=== PATIENT | male | born 1950 | race Hispanic/Latino ===

== ENCOUNTER 2020-06-28 06:58 | Observation (INO) | payer MEDICARE, OTHER ==
[2020-06-26 11:15] LABS: Hematocrit 43.9 % (35.5-45.6); Hemoglobin 14.7 gm/dl (11.8-15.2); Mean Corpuscular HGB Conc 34 % (32-34); Mean Corpuscular Volume 86 fl (84-94); Platelet Count 175 K/mm3 (140-440); Red Blood Count 5.12 M/mm3 (3.65-5.03); Red Cell Distribution Width 14.1 % (13.2-15.2)
[2020-06-26 11:32] LABS: Alanine Aminotransferase 23 units/L (7-56); Albumin 4.1 g/dL (3.9-5); BUN/Creatinine Ratio 19; Blood Urea Nitrogen 23 mg/dL (9-20); Calcium 9.3 mg/dL (8.4-10.2); Hemolysis Index 2
[~2020-06-28 06:58] MED LIST: ceFAZolin/STERILE WATER 2 GM/20 ML SYRINGE IV NR
[2020-06-28] MEDS ORDERED: LACTATED RINGERS 1,000 ML ONE (08:59)
[2020-06-28] MEDS ORDERED: HYDROmorphone 1 MG/1 ML INJ IV PRN ×2 (09:39)
[2020-06-28] MEDS ORDERED: LACTATED RINGERS 1,000 ML IV SCH (09:39)
[2020-06-28] MEDS ORDERED: ONDANSETRON 4 MG/2 ML INJ IV PRN ×2 (09:39→11:56)
--- NOTE | 2020-06-28 09:40 | Anesthesia Day of Surgery ---
Anesthesia Day of Surgery - Day of Surgery Patient Examined: Yes Patient H&P Reviewed: Yes Patient is NPO: Yes
--- NOTE | 2020-06-28 09:43 | Anesthesia Consultation ---
Anesthesia Consult and Med Hx Date of service: 06/28/20 - Airway Anesthetic Teeth Evaluation: Chipped, Crowns ROM Head & Neck: Adequate Mental/Hyoid Distance: Adequate Mallampati Class: Class II Intubation Access Assessment: Good - Pre-Operative Health Status ASA Pre-Surgery Classification: ASA3 Proposed Anesthetic Plan: General - Pulmonary Hx Smoking: Yes (STOPPED 1972) Hx Asthma: No Hx Respiratory Symptoms: No (+2FS) COPD: No Hx Pneumonia: No (Had COVID and states he's fully recovered. COVID negative test on chart) Hx Sleep Apnea: No (ADRIAN PRE SCREEN LOW RISK) - Cardiovascular System Hx Hypertension: No Hx Coronary Artery Disease: Yes Hx Heart Attack/AMI: No (Stent 2001. ECHO 12/2019) Hx Angina: No Hx Heart Murmur: No - Central Nervous System Hx Neuromuscular Disorder: Yes (RA-denies neck issues and use of steroids) Hx Seizures: No Hx Back Pain: Yes (LOWER) Hx Psychiatric Problems: Yes (Anxiety/Depression) - Gastrointestinal Hx Gastroesophageal Reflux Disease: No - Endocrine Hx Renal Disease: Yes (Renal cancer-neprectomy) Hx End Stage Renal Disease: No Hx Cirrhosis: No Hx Liver Disease: No (HEPATITIS AGE 14) - Hematic Hx Anemia: Yes (AT AGE 15 YRS) Hx Sickle Cell Disease: No - Other Systems Hx Alcohol Use: No Hx Substance Use: No Hx Cancer: Yes Hx Obesity: No
[2020-06-28] MEDS ORDERED: SODIUM CHLORIDE 0.9% 1000 ML 1,000 ML ONE (10:04)
[2020-06-28] MEDS ORDERED: propofoL 200 MG/20 ML VIAL IV ONE (10:19)
[2020-06-28] MEDS ORDERED: LIDOCAINE MPF (2%) 20 MG/1 ML VIAL 5 ML ONE (10:19)
[2020-06-28] MEDS ORDERED: ONDANSETRON 4 MG/2 ML INJ ONE (10:19)
[2020-06-28] MEDS ORDERED: fentaNYL 100 MCG/2 ML INJ ONE (10:19)
[2020-06-28] MEDS ORDERED: dexAMETHasone 20 MG/5 ML VIAL ONE (10:19)
[2020-06-28] MEDS ORDERED: IOHEXOL 300 MG/ML 50ML IV ONE (11:12)
[2020-06-28] MEDS ORDERED: MANNITOL/SORBITOL SOLUTION 3,000 ML IRRIG.SOLN IR ONE (11:44)
[2020-06-28] MEDS ORDERED: SODIUM CHLORIDE 0.9% IRRIG SOLN 2000 ML IR ONE (11:45)
[2020-06-28] MEDS ORDERED: WATER FOR IRRIG STERILE 1,500 ML BOTTLE IR ONE (11:46)
[2020-06-28] MEDS ORDERED: PHENYLEPHRINE/NS 1,000 MCG/10 ML SYRINGE (OR USE) IV ONE (11:46)
[2020-06-28] MEDS ORDERED: MORPHINE 2 MG/1 ML INJ IV PRN (11:56)
[2020-06-28] MEDS ORDERED: NALOXONE 0.4 MG/1 ML INJ IV PRN (11:56)
[2020-06-28] MEDS ORDERED: ZOLPIDEM 5 MG TAB PO PRN ×2 (11:56→12:03)
--- NOTE | 2020-06-28 11:56 | Short Stay Summary ---
Short Stay Documentation Date of service: 06/28/20 - History H&P: obtained from office - Allergies and Medications Current Medications: Allergies shellfish derived Allergy (Verified 05/19/19 15:13) Anaphylaxis Home Medications Medication Instructions Recorded Confirmed Last Taken Type Alfuzosin HCl [Alfuzosin HCl ER] 10 mg PO DAILY 05/19/19 06/28/20 06/27/20 17:00 History Finasteride [Proscar] 5 mg PO DAILY 05/19/19 06/28/20 06/27/20 17:00 History Glimepiride [Amaryl] 2 mg PO DAILY 05/19/19 06/28/20 06/27/20 17:00 History Aspirin 81 mg PO DAILY 04/12/20 06/28/20 06/19/20 08:00 History Calcium/Magnesium/Zinc 1 tab PO DAILY 04/12/20 06/28/20 06/19/20 08:00 History [place]-3 1 cap PO DAILY 04/12/20 06/28/20 06/19/20 08:00 History Red Yeast Rice 1 tab PO DAILY 04/12/20 06/28/20 06/19/20 08:00 History Saw [place] 1 tab PO DAILY 04/12/20 06/28/20 06/19/20 08:00 History Vitamin C 1,000 mg PO DAILY 04/12/20 06/28/20 06/19/20 08:00 History Vitamin D3 1 tab PO DAILY 04/12/20 06/28/20 06/19/20 08:00 History Multivit-Min/FA/Lycopen/Lutein 1 each PO DAILY 06/23/20 06/28/20 06/19/20 08:00 History [Centrum Silver Tablet] Zolpidem [Ambien] 5 mg PO QHS PRN 06/23/20 06/28/20 06/27/20 22:00 History Active Medications Cefazolin Sodium (Cefazolin/Sterile Water 2 Gm/20 Ml Syringe) 2 gm IV PREOP NR Stop: 06/28/20 23:00 Hydromorphone HCl (Hydromorphone 1 Mg/1 Ml Inj) 0.25 mg IV Q10MIN PRN PRN Reason: Pain, Moderate (4-6) Stop: 06/28/20 23:00 Hydromorphone HCl (Hydromorphone 1 Mg/1 Ml Inj) 0.5 mg IV Q10MIN PRN PRN Reason: Pain , Severe (7-10) Stop: 06/28/20 23:00 Lactated Ringer's (Lactated Ringers) 1,000 mls @ 125 mls/hr IV DIRECT KARLA Last Admin: 06/28/20 09:15 Dose: 125 mls/hr Documented by: Ondansetron HCl (Ondansetron 4 Mg/2 Ml Inj) 4 mg IV ONCE PRN PRN Reason: Nausea And Vomiting Stop: 06/28/20 23:00 - Brief post op/procedure progress note Date of procedure: 06/28/20 Pre-op diagnosis: bph Post-op diagnosis: same Procedure: cysto, TUR bladder neck, greenlight laser Anesthesia: GETA Surgeon: NANCY DEMARCO Estimated blood loss: minimal Pathology: list (prostate chips) Specimen disposition: to lab Condition: stable - Hospital course Hospital course: nickiriwaqas arguellesmarquez on chart home with palmer - Disposition Condition at discharge: Stable Disposition: DC-01 TO HOME OR SELFCARE Short Stay Discharge Plan Follow up with: NANCY DEMARCO MD [Staff Physician] - 7 Days RENEE NOGUERA MD [Primary Care Provider] - 7 Days
[2020-06-28] MEDS ORDERED: HYDROcodone/ACETAMINOPHEN 5-325 MG TAB PO PRN (12:30)
[2020-06-28] MEDS ORDERED: DEXTROSE 50% IN WATER (25GM) 50 ML SYRINGE IV PRN (12:30)
--- NOTE | 2020-06-28 13:05 | Fluoroscopy Report ---
INTRAOPERATIVE FLUOROSCOPY: INDICATION / CLINICAL INFORMATION: ELEVATED PSA. TECHNIQUE: Intraoperative spot images were obtained during the procedure. FINDINGS: Intraoperative spot images show injection of contrast in the right ureter in renal collecting system. No filling defects are seen. Right collecting system and ureter empty normally postdrainage imaging. Fluoroscopy Time: 6 seconds. Fluoroscopy Images: 6. Signer Name: Adithya Blackwell MD Signed: 06/28/2020 1:00 PM Workstation Name: [id number]
--- NOTE | 2020-06-28 14:00 | Post Anesthesia Evaluation ---
- Post Anesthesia Evaluation Patient Participated: Yes Airway Patent: Yes Stable Respiratory Function: Yes Nausea/Vomiting: No Temp > 96.8F: Yes Pain Manageable: Yes Adequeate Hydration: Yes Anesthesia Complications: No Block Receding Appropriately: Not Applicable Patient on Ventilator: No
[2020-06-28] MEDS: SODIUM CHLORIDE 0.9% 1000 ML 1,000 ML IV SCH (15:00)
[2020-06-28] MEDS: SODIUM CHLORIDE 0.9% IRR 500 ML BOTTLE IR PRN ×2 (15:30→19:07)
[2020-06-28] MEDS: ceFAZolin/NS 1 GM/50 ML 1 GM/50 ML BAG IV SCH (17:11)
[2020-06-28] MEDS: SODIUM CHLORIDE 0.9% IRR 500 ML BOTTLE IR SCH ×2 (17:12→21:10)
--- NOTE | 2020-06-28 20:50 | Consultation ---
History of Present Illness - Reason for Consult Consult date: 06/28/20 Medical management Requesting physician: NANCY DEMARCO - History of Present Illness Patient had TURP today and admitted for postoperative observation Patient has apparently tested positive for coronavirus which is he has been retesting positive for the last 7 months patient had coronavirus in October from which is reported completely Past History Past Medical History: diabetes Past Surgical History: TURP Social history: lives with family, full code Family history: hypertension Medications and Allergies Allergies Allergy/AdvReac Type Severity Reaction Status Date / Time shellfish derived Allergy Anaphylaxis Verified 05/19/19 15:13 Home Medications Medication Instructions Recorded Confirmed Last Taken Type Alfuzosin HCl [Alfuzosin HCl ER] 10 mg PO DAILY 05/19/19 06/28/20 06/27/20 17:00 History Finasteride [Proscar] 5 mg PO DAILY 05/19/19 06/28/20 06/27/20 17:00 History Glimepiride [Amaryl] 2 mg PO DAILY 05/19/19 06/28/20 06/27/20 17:00 History Aspirin 81 mg PO DAILY 04/12/20 06/28/20 06/19/20 08:00 History Calcium/Magnesium/Zinc 1 tab PO DAILY 04/12/20 06/28/20 06/19/20 08:00 History [place]-3 1 cap PO DAILY 04/12/20 06/28/20 06/19/20 08:00 History Red Yeast Rice 1 tab PO DAILY 04/12/20 06/28/20 06/19/20 08:00 History Saw [place] 1 tab PO DAILY 04/12/20 06/28/20 06/19/20 08:00 History Vitamin C 1,000 mg PO DAILY 04/12/20 06/28/20 06/19/20 08:00 History Vitamin D3 1 tab PO DAILY 04/12/20 06/28/20 06/19/20 08:00 History Multivit-Min/FA/Lycopen/Lutein 1 each PO DAILY 06/23/20 06/28/20 06/19/20 08:00 History [Centrum Silver Tablet] Zolpidem [Ambien] 5 mg PO QHS PRN 06/23/20 06/28/20 06/27/20 22:00 History Active Meds: Active Medications Hydrocodone Bitart/Acetaminophen (Hydrocodone/Acetaminophen 5-325 Mg Tab) 2 eac h PO Q4H PRN PRN Reason: Pain, Moderate (4-6) Last Admin: 06/28/20 15:00 Dose: 2 each Documented by: Cefazolin Sodium (Cefazolin/Sterile Water 2 Gm/20 Ml Syringe) 2 gm IV PREOP NR Stop: 06/28/20 23:00 Dextrose (Dextrose 50% In Water (25gm) 50 Ml Syringe) 50 ml IV Q30MIN PRN; Protocol PRN Reason: Hypoglycemia Finasteride (Finasteride 5 Mg Tab) 5 mg PO DAILY KARLA Glimepiride (Glimepiride 2 Mg Tab) 2 mg PO QAMDIAB KARLA Hydromorphone HCl (Hydromorphone 1 Mg/1 Ml Inj) 0.25 mg IV Q10MIN PRN PRN Reason: Pain, Moderate (4-6) Stop: 06/28/20 23:00 Hydromorphone HCl (Hydromorphone 1 Mg/1 Ml Inj) 0.5 mg IV Q10MIN PRN PRN Reason: Pain , Severe (7-10) Stop: 06/28/20 23:00 Lactated Ringer's (Lactated Ringers) 1,000 mls @ 125 mls/hr IV DIRECT KARLA Last Admin: 06/28/20 09:15 Dose: 125 mls/hr Documented by: Sodium Chloride (Nacl 0.9% 1000 Ml) 1,000 mls @ 100 mls/hr IV DIRECT KARLA Last Admin: 06/28/20 15:00 Dose: 100 mls/hr Documented by: Cefazolin Sodium (Ancef/Ns 1 Gm/50 Ml) 1 gm in 50 mls @ 100 mls/hr IV Q8H KARLA; Protocol Stop: 06/29/20 01:29 Last Admin: 06/28/20 17:11 Dose: 100 mls/hr Documented by: Miscellaneous Medication (Calcium/Magnesium/Zinc) 1 tab PO DAILY KARLA Morphine Sulfate (Morphine 2 Mg/1 Ml Inj) 2 mg IV Q4H PRN PRN Reason: Pain, Moderate (4-6) Naloxone HCl (Naloxone 0.4 Mg/1 Ml Inj) 0.1 mg IV Q2MIN PRN PRN Reason: Res Rate </= 8 or 02 SAT < 92% Ondansetron HCl (Ondansetron 4 Mg/2 Ml Inj) 4 mg IV ONCE PRN PRN Reason: Nausea And Vomiting Stop: 06/28/20 23:00 Ondansetron HCl (Ondansetron 4 Mg/2 Ml Inj) 4 mg IV Q8H PRN PRN Reason: Nausea And Vomiting Sodium Chloride (Sodium Chloride 0.9% Irr 500 Ml Bottle) 500 ml IR Q4HR KARLA Last Admin: 06/28/20 17:12 Dose: 500 ml Documented by: Sodium Chloride (Sodium Chloride 0.9% Irr 500 Ml Bottle) 500 ml IR PRN PRN PRN Reason: IRRIGATE PER MD ORDERS Last Admin: 06/28/20 19:07 Dose: 500 ml Documented by: Zolpidem Tartrate (Zolpidem 5 Mg Tab) 5 mg PO QHS PRN PRN Reason: Sleep Review of Systems All systems: negative Exam - Constitutional Vitals: Temp Pulse Resp BP Pulse Ox 97.9 F 69 16 144/70 98 06/28/20 14:00 06/28/20 14:00 06/28/20 14:00 06/28/20 14:00 06/28/20 14:00 General appearance: Present: no acute distress, well-nourished - EENT Eyes: Present: PERRL ENT: hearing intact, clear oral mucosa - Neck Neck: Present: supple, normal ROM - Respiratory Respiratory effort: normal Respiratory: bilateral: CTA - Cardiovascular Heart rate: 78 Rhythm: regular Heart Sounds: Present: S1 & S2. Absent: rub, click - Extremities Extremities: pulses symmetrical, No edema Peripheral Pulses: within normal limits - Abdominal General gastrointestinal: Present: soft, non-tender, non-distended, normal bowel sounds Male genitourinary: Present: normal - Integumentary Integumentary: Present: clear, warm, dry - Musculoskeletal Musculoskeletal: gait normal, strength equal bilaterally - Psychiatric Psychiatric: appropriate mood/affect, intact judgment & insight - Neurologic Neurologic: CNII-XII intact, moves all extremities Results - Labs CBC & Chem 7: 06/26/20 10:15 06/26/20 10:15 Labs: Abnormal lab results 06/28/20 06/28/20 Range/Units 08:47 12:17 POC Glucose 140 H 139 H (70-105) mg/dL Assessment and Plan - Patient Problems (1) S/P TURP Current Visit: Yes Status: Acute Plan to address problem: Postop doing well (2) 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 Plan to address problem: Patient may be having residual viral particles in his posterior nasal pathway because of which is testing positive recurrently since October 2019 No active coronavirus symptoms and signs Patient is on isolation which is not necessary but is here only for 1 day (3) T2DM (type 2 diabetes mellitus) Current Visit: Yes Status: Chronic Qualifiers: Diabetes mellitus usp insulin use: unspecified usp insulin use status Plan to address problem: Continue glimepiride and coverage (4) BPH (benign prostatic hyperplasia) Current Visit: Yes Status: Chronic Qualifiers: Lower urinary tract symptom presence: symptoms present Plan to address problem: Patient had TURP today Does not need Azulfidine and Flomax from normal (5) DVT prophylaxis Current Visit: Yes Status: Acute Plan to address problem: On SCDs and GI prophylaxis
[2020-06-28] MEDS: INSULIN LISPRO 100 UNIT/ML SUB-Q SCH (22:05)
[2020-06-29] MEDS: SODIUM CHLORIDE 0.9% 1000 ML 1,000 ML IV SCH (01:17)
[2020-06-29] MEDS: ceFAZolin/NS 1 GM/50 ML 1 GM/50 ML BAG IV SCH (01:17)
[2020-06-29] MEDS: SODIUM CHLORIDE 0.9% IRR 500 ML BOTTLE IR SCH ×3 (01:18→09:14)
[2020-06-29 05:03] VITALS: BP 132/62
--- NOTE | 2020-06-29 07:04 | Progress Note ---
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 Plan to address problem: Patient may be having residual viral particles in his posterior nasal pathway because of which is testing positive recurrently since October 2019 No active coronavirus symptoms and signs Patient is on isolation which is not necessary but is here only for 1 day (3) T2DM (type 2 diabetes mellitus) Current Visit: Yes Status: Chronic Qualifiers: Diabetes mellitus mcc insulin use: unspecified mcc insulin use status Plan to address problem: Continue glimepiride and coverage (4) BPH (benign prostatic hyperplasia) Current Visit: Yes Status: Chronic Qualifiers: Lower urinary tract symptom presence: symptoms present Plan to address problem: Patient had TURP today Does not need Azulfidine and Flomax from normal (5) DVT prophylaxis Current Visit: Yes Status: Acute Plan to address problem: On SCDs and GI prophylaxis 06/29/2020 -Patient is doing well does not have any complaints -Urology ordered Covid test -Disposition is per urology he is medically clear. History Interval history: Patient was seen and evaluated this morning Patient does not have any shortness of breath or fever Hospitalist Physical - Physical exam Narrative exam: Not in cardiopulmonary distress. The patient appeared well nourished and normally developed. Vital signs as documented. Head exam is unremarkable. No scleral icterus . Neck is without jugular venous distension, thyromegaly, or carotid bruits. Lungs are clear to auscultation. Cardiac exam reveals regular rate and Rhythm. Abdominal exam reveals normal bowel sounds, nontender, no organomegaly. Extremities are nonedematous and both femoral and pedal pulses are normal. 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 No focal weakness. - Constitutional Vitals: Temp Pulse Resp BP Pulse Ox 98.6 F 60 16 132/62 93 06/29/20 04:13 06/29/20 04:13 06/29/20 04:13 06/29/20 04:13 06/29/20 04:13 General appearance: Present: no acute distress, well-nourished Results - Labs CBC & Chem 7: 06/26/20 10:15 06/26/20 10:15 Labs: Laboratory Last Values WBC 5.4 K/mm3 (4.5-11.0) 06/26/20 10:15 RBC 5.12 M/mm3 (3.65-5.03) H 06/26/20 10:15 Hgb 14.7 gm/dl (11.8-15.2) 06/26/20 10:15 Hct 43.9 % (35.5-45.6) 06/26/20 10:15 MCV 86 fl (84-94) 06/26/20 10:15 MCH 29 pg (28-32) 06/26/20 10:15 MCHC 34 % (32-34) 06/26/20 10:15 RDW 14.1 % (13.2-15.2) 06/26/20 10:15 Plt Count 175 K/mm3 (140-440) 06/26/20 10:15 Sodium 138 mmol/L (137-145) 06/26/20 10:15 Potassium 4.2 mmol/L (3.6-5.0) 06/26/20 10:15 Chloride 102.3 mmol/L (98-107) 06/26/20 10:15 Carbon Dioxide 26 mmol/L (22-30) 06/26/20 10:15 Anion Gap 14 mmol/L 06/26/20 10:15 BUN 23 mg/dL (9-20) H 06/26/20 10:15 Creatinine 1.2 mg/dL (0.8-1.3) 06/26/20 10:15 Estimated GFR > 60 ml/min 06/26/20 10:15 BUN/Creatinine Ratio 19 % 06/26/20 10:15 Glucose 168 mg/dL (75-100) H 06/26/20 10:15 POC Glucose 119 mg/dL (70-105) H 06/28/20 21:05 Calcium 9.3 mg/dL (8.4-10.2) 06/26/20 10:15 Total Bilirubin 0.40 mg/dL (0.1-1.2) 06/26/20 10:15 AST 22 units/L (5-40) 06/26/20 10:15 ALT 23 units/L (7-56) 06/26/20 10:15 Alkaline Phosphatase 89 units/L (35-129) 06/26/20 10:15 Total Protein 7.7 g/dL (6.3-8.2) 06/26/20 10:15 Albumin 4.1 g/dL (3.9-5) 06/26/20 10:15 Albumin/Globulin Ratio 1.1 % 06/26/20 10:15 Coronavirus (PCR) Positive (Negative) A 06/26/20 10:10 Blood Type O POSITIVE 06/28/20 08:25 Antibody Screen Negative 06/28/20 08:25 Cho/IV: Voiding Method Indwelling Catheter Active Medications - Current Medications Current Medications: Generic Name Dose Route Start Last Admin Trade Name Freq PRN Reason Stop Dose Admin Hydrocodone Bitart/Acetaminophen 2 each 06/28/20 12:30 06/28/20 15:00 Hydrocodone/Acetaminophen 5-325 Mg Tab PO 2 each Q4H PRN Administration Pain, Moderate (4-6) Dextrose 50 ml 06/28/20 12:30 Dextrose 50% In Water (25gm) 50 Ml Syringe IV Q30MIN PRN Hypoglycemia Protocol Finasteride 5 mg 06/29/20 10:00 Finasteride 5 Mg Tab PO DAILY KARLA Glimepiride 2 mg 06/29/20 08:00 Glimepiride 2 Mg Tab PO QAMDIAB KARLA Lactated Ringer's 1,000 mls @ 125 mls/hr 06/28/20 09:39 06/28/20 09:15 Lactated Ringers IV 125 mls/hr DIRECT KARLA Administration Sodium Chloride 1,000 mls @ 100 mls/hr 06/28/20 12:00 06/29/20 01:17 Nacl 0.9% 1000 Ml IV 100 mls/hr DIRECT KARLA Administration Insulin Human Lispro 0 unit 06/28/20 22:00 06/28/20 22:05 Insulin Lispro 100 Unit/Ml SUB-Q Not Given ACHS [facility] Protocol Miscellaneous Medication 1 tab 06/29/20 10:00 Calcium/Magnesium/Zinc PO DAILY KARLA Morphine Sulfate 2 mg 06/28/20 11:56 Morphine 2 Mg/1 Ml Inj IV Q4H PRN Pain, Moderate (4-6) Naloxone HCl 0.1 mg 06/28/20 11:56 Naloxone 0.4 Mg/1 Ml Inj IV Q2MIN PRN Res Rate </= 8 or 02 SAT < 92% Ondansetron HCl 4 mg 06/28/20 11:56 Ondansetron 4 Mg/2 Ml Inj IV Q8H PRN Nausea And Vomiting Sodium Chloride 500 ml 06/28/20 18:00 06/29/20 05:11 Sodium Chloride 0.9% Irr 500 Ml Bottle IR 500 ml Q4HR KARLA Administration Sodium Chloride 500 ml 06/28/20 15:12 06/28/20 19:07 Sodium Chloride 0.9% Irr 500 Ml Bottle IR 500 ml PRN PRN Administration IRRIGATE PER MD ORDERS Zolpidem Tartrate 5 mg 06/28/20 12:03 Zolpidem 5 Mg Tab PO QHS PRN Sleep
[2020-06-29] MEDS ORDERED: GLIMEPIRIDE 2 MG TAB PO SCH (08:00)
[2020-06-29] MEDS: INSULIN LISPRO 100 UNIT/ML SUB-Q SCH (08:25)
[2020-06-29] MEDS ORDERED: MAGNESIUM PO SCH (10:00)
[2020-06-29] MEDS ORDERED: FINASTERIDE 5 MG TAB PO SCH (10:00)
[2020-06-29] MEDS ORDERED: ZINC PO SCH (10:00)
[2020-06-29] MEDS ORDERED: CALCIUM PO SCH (10:00)
--- NOTE | 2020-06-29 10:54 | Progress Note ---
Assessment and Plan cath irrigated cleat no clots home today Subjective Date of service: 06/29/20 Principal diagnosis: bph Objective - Constitutional Vitals: Vital Signs - 12hr 06/29/20 06/29/20 01:39 04:13 Temperature 98.6 F Pulse Rate 60 Pulse Rate [ 62 Right Brachial] Respiratory 20 16 Rate Blood Pressure 132/62 O2 Sat by Pulse 98 93 Oximetry General appearance: Present: no acute distress - Respiratory Respiratory effort: normal - Gastrointestinal General gastrointestinal: Present: soft, non-tender - Labs CBC & Chem 7: 06/26/20 10:15 06/26/20 10:15 Labs: Abnormal lab results 06/28/20 06/28/20 Range/Units 12:17 21:05 POC Glucose 139 H 119 H (70-105) mg/dL Medications & Allergies - Medications Allergies/Adverse Reactions: Allergies shellfish derived Allergy (Verified 05/19/19 15:13) Anaphylaxis Home Medications: Home Medications Medication Instructions Recorded Confirmed Last Taken Type Alfuzosin HCl [Alfuzosin HCl ER] 10 mg PO DAILY 05/19/19 06/28/20 06/27/20 17:00 History Finasteride [Proscar] 5 mg PO DAILY 05/19/19 06/28/20 06/27/20 17:00 History Glimepiride [Amaryl] 2 mg PO DAILY 05/19/19 06/28/20 06/27/20 17:00 History Aspirin 81 mg PO DAILY 04/12/20 06/28/20 06/19/20 08:00 History Calcium/Magnesium/Zinc 1 tab PO DAILY 04/12/20 06/28/20 06/19/20 08:00 History [place]-3 1 cap PO DAILY 04/12/20 06/28/20 06/19/20 08:00 History Red Yeast [place] 1 tab PO DAILY 04/12/20 06/28/20 06/19/20 08:00 History Saw [place] 1 tab PO DAILY 04/12/20 06/28/20 06/19/20 08:00 History Vitamin C 1,000 mg PO DAILY 04/12/20 06/28/20 06/19/20 08:00 History Vitamin D3 1 tab PO DAILY 04/12/20 06/28/20 06/19/20 08:00 History Multivit-Min/FA/Lycopen/Lutein 1 each PO DAILY 06/23/20 06/28/20 06/19/20 08:00 History [Centrum Silver Tablet] Zolpidem [Ambien] 5 mg PO QHS PRN 06/23/20 06/28/20 06/27/20 22:00 History Active Medications: Generic Name Dose Route Start Last Admin Trade Name Freq PRN Reason Stop Dose Admin Hydrocodone Bitart/Acetaminophen 2 each 06/28/20 12:30 06/28/20 15:00 Hydrocodone/Acetaminophen 5-325 Mg Tab PO 2 each Q4H PRN Administration Pain, Moderate (4-6) Dextrose 50 ml 06/28/20 12:30 Dextrose 50% In Water (25gm) 50 Ml Syringe IV Q30MIN PRN Hypoglycemia Protocol Finasteride 5 mg 06/29/20 10:00 06/29/20 09:14 Finasteride 5 Mg Tab PO 5 mg DAILY KARLA Administration Glimepiride 2 mg 06/29/20 08:00 06/29/20 09:14 Glimepiride 2 Mg Tab PO 2 mg QAMDIAB KARLA Administration Lactated Ringer's 1,000 mls @ 125 mls/hr 06/28/20 09:39 06/28/20 09:15 Lactated Ringers IV 125 mls/hr DIRECT KARLA Administration Sodium Chloride 1,000 mls @ 100 mls/hr 06/28/20 12:00 06/29/20 01:17 Nacl 0.9% 1000 Ml IV 100 mls/hr DIRECT KARLA Administration Insulin Human Lispro 0 unit 06/28/20 22:00 06/29/20 08:25 Insulin Lispro 100 Unit/Ml SUB-Q Not Given ACHS [facility] Protocol Miscellaneous Medication 1 tab 06/29/20 10:00 Calcium/Magnesium/Zinc PO DAILY KARLA Morphine Sulfate 2 mg 06/28/20 11:56 Morphine 2 Mg/1 Ml Inj IV Q4H PRN Pain, Moderate (4-6) Naloxone HCl 0.1 mg 06/28/20 11:56 Naloxone 0.4 Mg/1 Ml Inj IV Q2MIN PRN Res Rate </= 8 or 02 SAT < 92% Ondansetron HCl 4 mg 06/28/20 11:56 Ondansetron 4 Mg/2 Ml Inj IV Q8H PRN Nausea And Vomiting Sodium Chloride 500 ml 06/28/20 18:00 06/29/20 09:14 Sodium Chloride 0.9% Irr 500 Ml Bottle IR 500 ml Q4HR KARLA Administration Sodium Chloride 500 ml 06/28/20 15:12 06/28/20 19:07 Sodium Chloride 0.9% Irr 500 Ml Bottle IR 500 ml PRN PRN Administration IRRIGATE PER MD ORDERS Zolpidem Tartrate 5 mg 06/28/20 12:03 Zolpidem 5 Mg Tab PO QHS PRN Sleep
--- NOTE | 2020-06-29 10:55 | Discharge Summary ---
Short Stay Discharge Plan Activity: other (no straining ) Weight Bearing Status: Full Weight Bearing Diet: low fat, low cholesterol, low salt Special Instructions: other (inc fluids ) Durable Medical Equipment Needed Upon Discharge: other (home with palmer ) Follow up with: RENEE NOGUERA MD [Primary Care Provider] - 7 Days NANCY DEMARCO MD [Staff Physician] - 7 Days
--- NOTE | 2020-07-05 09:45 | Operative Report ---
PREOPERATIVE DIAGNOSES: Benign prostatic hypertrophy. POSTOPERATIVE DIAGNOSES: Benign prostatic hypertrophy. PROCEDURE: Cystoscopy, transurethral resection of bladder neck, GreenLight laser ablation of the prostate. SURGEON: Miko Lin MD ANESTHESIA: General. ESTIMATED BLOOD LOSS: Minimal. FLUIDS: Crystalloid. COMPLICATIONS: No complications. INDICATIONS: This patient is a 70-year-old gentleman with a long history of BPH, symptoms worsened. He developed urinary retention requiring clean intermittent catheterization. He presents now for surgical intervention. DESCRIPTION OF PROCEDURE: The patient was taken to the operative suite, placed in a supine position. After adequate general anesthesia, placed in a dorsal lithotomy position, prepped and draped in a sterile fashion. Pancystourethroscopy was performed with a 22-Chadian Storz cystoscope, no urethral abnormalities. His prostate displayed trilobar obstruction with a medium sized median lobe. In bladder, no tumors or stones were noted. Diffuse trabeculation. 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 Right retrograde pyelogram was obtained with an 8-Chadian [place] catheter and 8 mL of contrast. No filling defects or obstruction. Next, using a 24-Chadian resectoscope with the cutting and coag on 160 and 60, transurethral resection of the median lobe was performed without difficulty. Those chips were evacuated out with the [place] evacuator. Next, using a GreenLight laser MoXy fiber laser ablation of the lateral lobes were performed starting at 80 herbert and going up to 120 herbert. Ablation of the lateral lobes, adequate hemostasis of the lateral and median lobe was performed without difficulty. A 22-Chadian catheter was placed with a stylette. Rectal exam was benign. The patient tolerated the procedure well and was extubated and taken to recovery room. JOB# [id number] [facility]
== END 2020-06-29 12:45 | disposition home or self-care (01) ==
LOC: OR 06:58 → 3A 11:56
PROVIDERS: ADMIT Urology; ATTEND Urology
DX: N40.1 Benign prostatic hyperplasia with lower urinary tract symptoms (principal); Z20.822 Contact with and (suspected) exposure to COVID-19; E11.9 Type 2 diabetes mellitus without complications; Z79.82 Long term (current) use of aspirin; Z79.4 Long term (current) use of insulin
CPT/HCPCS: 36415; 52601; 74420; 80053; 82962; 85027; 86850; 86900; 86901; 88305; 96361; 96365; 96366; A4217; G0378; J0690; J1100; J2370; J2405; J2704; J3010; J7030; J7120; Q9967; U0003